=== PATIENT | female | born 1945 | race Caucasian/White ===

== ENCOUNTER 2020-12-31 12:43 | Inpatient (IN) ==
[~2020-12-31 12:43] MED LIST: Buffered Lidocaine 1% SYRIN 1 ml INTRADERM ONE; Famotidine IV 10 MG/ML 2 ml VIAL (20 mg) IV ONE; Lactated Ringers 1000 ml BAG 1,000 ML IV SCH
[2020-12-31] MEDS ORDERED: Famotidine IV 10 MG/ML 2 ml VIAL (20 mg) ONE (13:38)
[2020-12-31] MEDS ORDERED: Dexamethasone IV 4 MG/ML VIAL 1 ml VIAL ONE (15:08)
[2020-12-31] MEDS ORDERED: Lidocaine 2% PF 5 ML VIAL ONE (15:08)
[2020-12-31] MEDS ORDERED: fentaNYL 100 mcg/2 ml 50 MCG/ML VIAL ONE ×2 (15:08→17:34)
[2020-12-31] MEDS ORDERED: Ondansetron 4 mg VIAL 2 MG/ML 2 ml VIAL ONE (15:08)
[2020-12-31] MEDS ORDERED: Ketamine HCL 50 mg/ml 10 ml VIAL (500 MG) ONE (15:08)
[2020-12-31] MEDS ORDERED: Midazolam 5 mg/5 ml VIAL 1 mg/ml 5 ml VIAL (5 mg) ONE (15:08)
[2020-12-31] MEDS ORDERED: Propofol 10 MG/ML 20 ML BTL ONE (15:25)
[2020-12-31] MEDS ORDERED: Lidocaine 1% w EPI 1:100,000 MDV 20 ML VIAL ONE (15:38)
[2020-12-31] MEDS ORDERED: Phenylephrine 40 mcg/mL 10mL (400mcg) SYRINGE ONE (16:40)
[2020-12-31] MEDS ORDERED: Succinylcholine 200 mg VIAL 20 mg/ml 10 ml VIAL (200 mg) ONE (16:45)
[2020-12-31] MEDS ORDERED: Naloxone 0.4 mg VIAL 0.4 mg/ml 1 ml VIAL IV PRN (17:21)
[2020-12-31] MEDS ORDERED: Ondansetron 4 mg VIAL 2 MG/ML 2 ml VIAL IV PRN (17:21)
[2020-12-31] MEDS ORDERED: fentaNYL 100 mcg/2 ml 50 MCG/ML VIAL IV PRN (17:21)
[2020-12-31] MEDS ORDERED: Levalbuterol 0.63MG/3ML NEB UNIT OF USE INH PRN (17:21)
[2020-12-31] MEDS ORDERED: Albuterol/Ipratropium NEB.SOL (2.5/0.5 MG) 3 ML NEB.SOLN INH PRN (17:41)
[2020-12-31] MEDS ORDERED: Lactated Ringers 1000 ml BAG 1,000 ML IV SCH (23:45)
[2021-01-01 05:59] LABS: ABS Neutrophils 11.8 10^3/ul (1.5-7.7); Hematocrit 34 % (35-47); Hemoglobin 11.7 g/dL (12.0-16.0); Mean Corpuscular HGB Conc 34 g/dL (31-36); Mean Corpuscular Hemoglobin 34 pg (27-31); Mean Corpuscular Volume 101 fL (80-97); Mean Platelet Volume 8.4 fL (7.4-10.4); Nucleated Red Blood Cells % 0.1; Platelet Count 287 10^3/uL (150-450); Red Blood Count 3.42 10^6 /uL (3.70-4.87); Red Cell Distribution Width 12 % (10-15); White Blood Count 13.8 10^3/uL (3.5-10.8)
[2021-01-01 06:14] LABS: Calcium 8.6 mg/dL (8.6-10.3); Potassium 4.8 mmol/L (3.5-5.0)
[2021-01-01 06:20] LABS: EGFR African American 173.7 (>60); EGFR Non-African American 143.5 (>60)
[2021-01-01] MEDS: D5LR 1000 ml BAG 1,000 ML IV SCH (07:25)
[2021-01-02] MEDS: fentaNYL 100 mcg/2 ml 50 MCG/ML VIAL IV SLOW PU PRN ×2 (05:53→15:24)
[2021-01-02 06:07] LABS: ABS Basophils 0.1 10^3/ul (0-0.2); ABS Eosinophils 0.1 10^3/ul (0-0.6); ABS Lymphocytes 1.2 10^3/ul (1.0-4.8); ABS Monocytes 1.4 10^3/ul (0-0.8); ABS Neutrophils 8.4 10^3/ul (1.5-7.7); Eosinophil % 0.6 %; Hematocrit 32 % (35-47); Lymphocyte % 11.1 %; Mean Corpuscular HGB Conc 34 g/dL (31-36); Mean Corpuscular Hemoglobin 34 pg (27-31); Mean Corpuscular Volume 101 fL (80-97); Mean Platelet Volume 7.6 fL (7.4-10.4); Platelet Count 245 10^3/uL (150-450); Red Cell Distribution Width 12 % (10-15); White Blood Count 11.2 10^3/uL (3.5-10.8)
[2021-01-02 06:22] LABS: Calcium 9.2 mg/dL (8.6-10.3); EGFR African American 113.9 (>60); EGFR Non-African American 94.1 (>60); Potassium 4.3 mmol/L (3.5-5.0)
[2021-01-02] MEDS ORDERED: Furosemide 40 mg/4 ml IV VIAL IV ONE (08:34)
[2021-01-02] MEDS: D5LR 1000 ml BAG 1,000 ML IV SCH ×2 (10:33→23:20)
[2021-01-03] MEDS: fentaNYL 100 mcg/2 ml 50 MCG/ML VIAL IV SLOW PU PRN ×2 (02:03→13:35)
[2021-01-03 07:05] LABS: ABS Eosinophils 0.1 10^3/ul (0-0.6); ABS Lymphocytes 1.1 10^3/ul (1.0-4.8); ABS Monocytes 1.2 10^3/ul (0-0.8); ABS Neutrophils 5.5 10^3/ul (1.5-7.7); Eosinophil % 1.8 %; Hematocrit 29 % (35-47); Lymphocyte % 13.5 %; Mean Corpuscular HGB Conc 34 g/dL (31-36); Mean Corpuscular Hemoglobin 35 pg (27-31); Mean Corpuscular Volume 102 fL (80-97); Mean Platelet Volume 7.9 fL (7.4-10.4); Platelet Count 212 10^3/uL (150-450); Red Blood Count 2.88 10^6 /uL (3.70-4.87); Red Cell Distribution Width 12 % (10-15); White Blood Count 7.9 10^3/uL (3.5-10.8)
[2021-01-03 07:21] LABS: Calcium 8.9 mg/dL (8.6-10.3); EGFR Non-African American 101.6 (>60); Potassium 4.1 mmol/L (3.5-5.0)
[2021-01-03] MEDS: EXEMESTANE 25 MG PO SCH (07:50)
[2021-01-03 08:25] LABS: Calcium 8.8 mg/dL (8.6-10.3); EGFR African American 149.4 (>60); EGFR Non-African American 123.5 (>60); Magnesium 1.4 mg/dL (1.9-2.7); Phosphorus 1.9 mg/dL (2.5-5.0); Potassium 3.5 mmol/L (3.5-5.0)
[2021-01-03] MEDS ORDERED: Potassium Phosphate IV 15 MMOLE in NS 0.9% 250 ml 250 ML IVPB ONE (08:53)
[2021-01-03] MEDS ORDERED: Magnesium Sulf 4 GM/100 ML IV 4,000 MG/100 ML BAG IVPB ONE (08:53)
[2021-01-04 05:07] LABS: Hematocrit 32 % (35-47); Mean Corpuscular HGB Conc 35 g/dL (31-36); Mean Corpuscular Hemoglobin 35 pg (27-31); Mean Corpuscular Volume 99 fL (80-97); Mean Platelet Volume 8.1 fL (7.4-10.4); Platelet Count 242 10^3/uL (150-450); Red Blood Count 3.19 10^6 /uL (3.70-4.87); Red Cell Distribution Width 12 % (10-15); White Blood Count 7.9 10^3/uL (3.5-10.8)
[2021-01-04 05:17] LABS: INR 1.18 (0.82-1.09)
[2021-01-04 05:33] LABS: Albumin 2.9 g/dL (3.2-5.2); Albumin/Globulin Ratio 1.3 (1-3); Calcium 9.1 mg/dL (8.6-10.3); EGFR African American 142.6 (>60); EGFR Non-African American 117.9 (>60); Globulin 2.2 g/dL (2-4); Magnesium 2.1 mg/dL (1.9-2.7); Phosphorus 3.3 mg/dL (2.5-5.0); Potassium 4.1 mmol/L (3.5-5.0); Total Bilirubin 1.7 mg/dL (0.2-1.0); Total Protein 5.1 g/dL (6.4-8.9)
[2021-01-04] MEDS: EXEMESTANE 25 MG PO SCH (09:34)
[2021-01-04] MEDS ORDERED: Cefepime 2 GM in Dextrose 2 GM/50 ML BAG IV SCH (23:30)
[2021-01-05] MEDS ORDERED: Vancomycin 1,000 MG in NS 0.9% 250 ml 250 ML IVPB ONE
[2021-01-05] MEDS: Cefepime 2 GM in Dextrose 2 GM/50 ML BAG IV SCH ×2 (08:11→15:47)
[2021-01-05 08:14] LABS: Hematocrit 33 % (35-47); Hemoglobin 11.5 g/dL (12.0-16.0); Mean Corpuscular HGB Conc 35 g/dL (31-36); Mean Corpuscular Hemoglobin 35 pg (27-31); Mean Corpuscular Volume 99 fL (80-97); Mean Platelet Volume 7.8 fL (7.4-10.4); Platelet Count 296 10^3/uL (150-450); Red Blood Count 3.32 10^6 /uL (3.70-4.87); Red Cell Distribution Width 12 % (10-15); White Blood Count 9.6 10^3/uL (3.5-10.8)
[2021-01-05 08:19] LABS: ABS Basophils 0.1 10^3/ul (0-0.2); ABS Eosinophils 0.2 10^3/ul (0-0.6); ABS Lymphocytes 1.2 10^3/ul (1.0-4.8); ABS Monocytes 1.6 10^3/ul (0-0.8); ABS Neutrophils 6.4 10^3/ul (1.5-7.7); Eosinophil % 2.5 %; Lymphocyte % 12.8 %
[2021-01-05] MEDS: EXEMESTANE 25 MG PO SCH (09:43)
[2021-01-05] MEDS ORDERED: Vancomycin per Pharmacy 1 EA NOTE FOLLOW UP SCH (10:00)
[2021-01-05] MEDS ORDERED: Vancomycin 1000 MG in NS 0.9% 250 ML IVPB ONE (11:00)
[2021-01-05] MEDS: Budesonide NEB 0.5 MG/2 ML NEB.SOLN INH SCH (19:49)
[2021-01-05] MEDS ORDERED: Gadoteridol (CONTRAST) 279.3 MG/ML 10 ML IV ONE (20:31)
[2021-01-05] MEDS: Vancomycin 750 MG in NS 0.9% 250 ML IVPB SCH (23:29)
[2021-01-06] MEDS: Cefepime 2 GM in Dextrose 2 GM/50 ML BAG IV SCH ×3 (02:13→16:16)
[2021-01-06] MEDS: fentaNYL 100 mcg/2 ml 50 MCG/ML VIAL IV SLOW PU PRN ×3 (02:25→12:19)
[2021-01-06] MEDS: Budesonide NEB 0.5 MG/2 ML NEB.SOLN INH SCH ×2 (07:32→20:18)
[2021-01-06] MEDS: EXEMESTANE 25 MG PO SCH (08:07)
[2021-01-06] MEDS: Vancomycin 750 MG in NS 0.9% 250 ML IVPB SCH (11:14)
[2021-01-06] MEDS: Morphine 2 MG/ML SYRINGE IV PRN (16:22)
[2021-01-07] MEDS: Vancomycin 750 MG in NS 0.9% 250 ML IVPB SCH ×2 (00:29→11:32)
[2021-01-07] MEDS: Cefepime 2 GM in Dextrose 2 GM/50 ML BAG IV SCH ×3 (02:26→16:30)
[2021-01-07 05:40] LABS: ABS Basophils 0.1 10^3/ul (0-0.2); ABS Eosinophils 0.3 10^3/ul (0-0.6); ABS Lymphocytes 1.2 10^3/ul (1.0-4.8); ABS Monocytes 1.5 10^3/ul (0-0.8); ABS Neutrophils 3.2 10^3/ul (1.5-7.7); Hematocrit 28 % (35-47); Hemoglobin 10.2 g/dL (12.0-16.0); Lymphocyte % 19.6 %; Mean Corpuscular HGB Conc 36 g/dL (31-36); Mean Corpuscular Hemoglobin 35 pg (27-31); Mean Corpuscular Volume 98 fL (80-97); Mean Platelet Volume 8.2 fL (7.4-10.4); Nucleated Red Blood Cells % 0.2; Platelet Count 244 10^3/uL (150-450); Red Blood Count 2.91 10^6 /uL (3.70-4.87); Red Cell Distribution Width 12 % (10-15); White Blood Count 6.2 10^3/uL (3.5-10.8)
[2021-01-07 05:54] LABS: Calcium 9.3 mg/dL (8.6-10.3); EGFR African American 136.4 (>60); EGFR Non-African American 112.8 (>60); Potassium 4.4 mmol/L (3.5-5.0)
[2021-01-07] MEDS: Budesonide NEB 0.5 MG/2 ML NEB.SOLN INH SCH ×2 (07:50→21:41)
[2021-01-07] MEDS: EXEMESTANE 25 MG PO SCH (09:55)
[2021-01-07] MEDS ORDERED: Vancomycin Trough Check NOTE FOLLOW UP ONE (10:30)
[2021-01-07] MEDS: Morphine 2 MG/ML SYRINGE IV PRN (11:32)
[2021-01-07 12:06] LABS: Albumin 2.8 g/dL (3.2-5.2); Albumin/Globulin Ratio 1.2 (1-3); C Reactive Protein 86.28 mg/L (<8.01); Globulin 2.3 g/dL (2-4); Total Bilirubin 0.8 mg/dL (0.2-1.0); Total Protein 5.1 g/dL (6.4-8.9)
[2021-01-07] MEDS ORDERED: Vancomycin 1,250 MG in NS 0.9% 250 ml 250 ML IVPB SCH (21:00)
[2021-01-07] MEDS ORDERED: guaiFENesin 100 mg/5 ml LIQ unit dose cup PO ONE (23:00)
[2021-01-08] MEDS: guaiFENesin 100 mg/5 ml LIQ unit dose cup PO SCH ×5 (04:24→20:49)
[2021-01-08 05:18] LABS: ABS Basophils 0.1 10^3/ul (0-0.2); ABS Eosinophils 0.3 10^3/ul (0-0.6); ABS Lymphocytes 1.2 10^3/ul (1.0-4.8); ABS Monocytes 1.3 10^3/ul (0-0.8); Eosinophil % 4.5 %; Hematocrit 32 % (35-47); Hemoglobin 10.8 g/dL (12.0-16.0); Lymphocyte % 17.4 %; Mean Corpuscular HGB Conc 34 g/dL (31-36); Mean Corpuscular Hemoglobin 34 pg (27-31); Mean Corpuscular Volume 98 fL (80-97); Mean Platelet Volume 8.1 fL (7.4-10.4); Platelet Count 299 10^3/uL (150-450); Red Blood Count 3.21 10^6 /uL (3.70-4.87); Red Cell Distribution Width 12 % (10-15); White Blood Count 6.8 10^3/uL (3.5-10.8)
[2021-01-08 05:36] LABS: Calcium 9.5 mg/dL (8.6-10.3); EGFR African American 173.7 (>60); EGFR Non-African American 143.5 (>60); Potassium 3.9 mmol/L (3.5-5.0)
[2021-01-08] MEDS: Budesonide NEB 0.5 MG/2 ML NEB.SOLN INH SCH ×2 (06:52→19:27)
[2021-01-08] MEDS: EXEMESTANE 25 MG PO SCH (09:02)
[2021-01-09] MEDS: guaiFENesin 100 mg/5 ml LIQ unit dose cup PO SCH ×7 (00:20→23:58)
[2021-01-09] MEDS: Budesonide NEB 0.5 MG/2 ML NEB.SOLN INH SCH ×2 (07:24→19:28)
[2021-01-09] MEDS: EXEMESTANE 25 MG PO SCH (08:18)
[2021-01-10] MEDS: guaiFENesin 100 mg/5 ml LIQ unit dose cup PO SCH ×5 (05:07→20:26)
[2021-01-10 07:12] LABS: ABS Basophils 0.1 10^3/ul (0-0.2); ABS Eosinophils 0.2 10^3/ul (0-0.6); ABS Lymphocytes 1.6 10^3/ul (1.0-4.8); ABS Monocytes 0.8 10^3/ul (0-0.8); ABS Neutrophils 4.1 10^3/ul (1.5-7.7); Eosinophil % 2.6 %; Hematocrit 31 % (35-47); Hemoglobin 11.2 g/dL (12.0-16.0); Lymphocyte % 23.8 %; Mean Corpuscular HGB Conc 36 g/dL (31-36); Mean Corpuscular Hemoglobin 35 pg (27-31); Mean Corpuscular Volume 96 fL (80-97); Mean Platelet Volume 7.8 fL (7.4-10.4); Platelet Count 379 10^3/uL (150-450); Red Blood Count 3.24 10^6 /uL (3.70-4.87); Red Cell Distribution Width 12 % (10-15); White Blood Count 6.8 10^3/uL (3.5-10.8)
[2021-01-10 07:28] LABS: Albumin 3.1 g/dL (3.2-5.2); Albumin/Globulin Ratio 1.1 (1-3); Calcium 10.1 mg/dL (8.6-10.3); EGFR African American 142.6 (>60); EGFR African American 145.9 (>60); EGFR Non-African American 117.9 (>60); EGFR Non-African American 120.6 (>60); Globulin 2.7 g/dL (2-4); Potassium 4.4 mmol/L (3.5-5.0); Total Bilirubin 0.6 mg/dL (0.2-1.0); Total Protein 5.8 g/dL (6.4-8.9)
[2021-01-10] MEDS ORDERED: Vancomycin Trough Check NOTE FOLLOW UP ONE (08:30)
[2021-01-10] MEDS: Budesonide NEB 0.5 MG/2 ML NEB.SOLN INH SCH ×2 (08:55→19:59)
[2021-01-10] MEDS: EXEMESTANE 25 MG PO SCH (09:12)
[2021-01-11] MEDS: guaiFENesin 100 mg/5 ml LIQ unit dose cup PO SCH ×5 (01:03→16:26)
[2021-01-11] MEDS: Budesonide NEB 0.5 MG/2 ML NEB.SOLN INH SCH (07:09)
[2021-01-11] MEDS: EXEMESTANE 25 MG PO SCH (08:50)
[2021-01-11 11:13] VITALS: BP 124/59
== END 2021-01-11 17:40 | disposition home or self-care (01) | DRG 13 ==
LOC: OR 12:43 → ICU 17:31 → SSU 01-05 17:11
PROVIDERS: ADMIT Otolaryngology; ATTEND Hospitalist